=== PATIENT | female | born 1995 | race African-American/Black ===

== ENCOUNTER 2017-11-25 08:39 | Emergency (ER) | payer OTHER ==
[~2017-11-25] VITALS: Ht 157.5 cm; Wt 80.0 kg
[2017-11-25 08:42] VITALS: BP 126/60; PULSE 78; RESP 16; TEMP 97.9; O2SAT 98
[2017-11-25] MEDS ORDERED: ZIPR40 PO (08:52)
[2017-11-25] MEDS ORDERED: PROZ20CA11 PO (08:52)
[2017-11-25 08:53] VITALS: BP 119/61; PULSE 78; RESP 18; O2SAT 99
[2017-11-25] MEDS ORDERED: SODIUM CHLORIDE 0.9% FLUSH 10 ML FLUSH IV FLUSH PRN (09:15)
[2017-11-25 09:16] LABS: AUTOMATED NEUTROPHIL # 6.8 TH/MM3 (1.8-7.7); BASOPHIL # 0.1 TH/MM3 (0-0.2); BASOPHIL % 0.6 % (0.0-2.0); EOSINOPHIL # 0.2 TH/MM3 (0-0.4); EOSINOPHIL % 2.1 % (0.0-4.0); HEMATOCRIT 44.2 % (35.0-46.0); LYMPH % 19.6 % (9.0-44.0); LYMPHOCYTE # 1.9 TH/MM3 (1.0-4.8); MEAN CELL VOLUME 95.4 FL (80.0-100.0); MEAN CORPUSCULAR HEMOGLOBIN 32.3 PG (27.0-34.0); MEAN CORPUSCULAR HGB CONC 33.9 % (32.0-36.0); MEAN PLATELET VOLUME 9.5 FL (7.0-11.0); MONO % 6.3 % (0.0-8.0); MONOCYTE # 0.6 TH/MM3 (0-0.9); NEUT % 71.4 % (16.0-70.0); PLATELET COUNT 263 TH/MM3 (150-450); RED BLOOD COUNT 4.64 MIL/MM3 (4.00-5.30); RED CELL DISTRIBUTION WIDTH 13.5 % (11.6-17.2); WHITE BLOOD COUNT 9.5 TH/MM3 (4.0-11.0)
[2017-11-25 09:18] LABS: BILIRUBIN, URINE NEG (NEG); BLOOD, URINE NEG (NEG); GLUCOSE,URINE NEG (NEG); KETONE, URINE NEG (NEG); MUCUS URINE FEW /lpf (OCC); NITRITE,URINE NEG (NEG); SQUAMOUS EPITHELIAL CELL URINE 1 /hpf (0-5); URINE COLOR LIGHT-YELLOW (YELLW/STRAW); URINE LEUKOCYTE ESTERASE NEG (NEG)
--- NOTE | 2017-11-25 09:41 | PD ---
HPI Chief Complaint: GI Complaint Time Seen by Provider: 09:02 Travel History International Travel<30 days: No Contact w/Intl Traveler<30days: No Traveled to known affect area: No History of Present Illness HPI This is a 22-year-old female who presents today with complaints of epigastric pain with associated blood in her stool. Patient states that she has had this for several days. She states that normally she can control it with Tums however the Tums has stopped working. She reports that shortly after eating, the pain gets worse. Denies any hematemesis. She reports that she purchase some Zantac however the Zantac is not helping her discomfort. Patient also reports that she is noticed some blood in her stool. She denies any lower abdominal pain. She reports is worse in her epigastrium and left upper quadrant. There is no right upper quadrant pain. The patient has no history of GI abnormalities. There are no other complaints at the time of my examination. PFSH Past Medical History Bipolar Disorder: Yes Anxiety: Yes Depression: Yes Respiratory: Yes Tetanus Vaccination: Unknown Influenza Vaccination: No ?: Unknown LMP: 10/23/17 Past Surgical History Appendectomy: Yes Social History Alcohol Use: Yes Tobacco Use: Yes (1 pack a week) Substance Use: Yes (marijuana daily) Allergies-Medications (Allergen,Severity, Reaction): Coded Allergies: Penicillins (Verified Allergy, Intermediate, Hives, 11/25/17) Reported Meds & Prescriptions Reported Meds & Active Scripts Active Protonix (Pantoprazole Sodium) 40 Mg Tab 40 Mg PO DAILY Bentyl (Dicyclomine HCl) 10 Mg Cap 10 Mg PO TID PRN Reported Prozac (Fluoxetine HCl) 20 Mg Cap 20 Mg PO DAILY Geodon (Ziprasidone) 40 Mg Cap 40 Mg PO DAILY Review of Systems Except as stated in HPI: all other systems reviewed are Neg General / Constitutional: No: Fever, Chills HENT: No: Headaches, Lightheadedness Cardiovascular: No: Chest Pain or Discomfort, Palpitations, Tachycardia Respiratory: No: Cough, Shortness of Breath Gastrointestinal: Positive: Nausea, Abdominal Pain, Other (Blood in stool with mucus.), No: Vomiting, Diarrhea, Hematemesis (Epigastric and left upper quadrant ) Genitourinary: No: Frequency, Dysuria Musculoskeletal: No: Weakness, Pain Neurologic: No: Weakness, Dizziness, Headache Psychiatric: No: Substance Abuse Physical Exam Narrative GENERAL: Well-developed well-nourished female in no acute respiratory distress. SKIN: Focused skin assessment warm/dry. HEAD: Atraumatic. Normocephalic. EYES: Pupils equal and round. No scleral icterus. No injection or drainage. ENT: No nasal bleeding or discharge. Mucous membranes pink and moist. NECK: Trachea midline. Supple. CARDIOVASCULAR: Regular rate and rhythm. No murmur appreciated. RESPIRATORY: No accessory muscle use. Clear to auscultation. Breath sounds equal bilaterally. GASTROINTESTINAL: Abdomen soft, nondistended. She has subjective epigastric and left upper quadrant pain. There is no guarding or rebound. There is no lower abdominal pain on palpation. MUSCULOSKELETAL: No obvious deformities. No clubbing. No cyanosis. No edema. NEUROLOGICAL: Awake and alert. No obvious cranial nerve deficits. Motor grossly within normal limits. Normal speech. Data Data Last Documented VS Vital Signs Date Time Temp Pulse Resp B/P (MAP) Pulse Ox O2 Delivery O2 Flow Rate FiO2 11/25/17 14:18 18 11/25/17 10:08 99 Room Air 11/25/17 08:53 78 11/25/17 08:42 97.9 Orders Orders Complete Blood Count With Diff (11/25/17 09:02) Comprehensive Metabolic Panel (11/25/17 09:02) Lipase (11/25/17 09:02) Prothrombin Time / Inr (Pt) (11/25/17 09:02) Act Partial Throm Time (Ptt) (11/25/17 09:02) Urinalysis - C+S If Indicated (11/25/17 09:02) Iv Access Insert/Monitor (11/25/17 09:02) Ecg Monitoring (11/25/17 09:02) Oximetry (11/25/17 09:02) Sodium Chloride 0.9% Flush (Ns Flush) (11/25/17 09:15) Ed Urine Pregnancytest Poc (11/25/17 09:02) Al-Mag Hy-Si 40-40-4 Mg/Ml Liq (Mag-Al P (11/25/17 09:45) Lidocaine 2% Viscous (Xylocaine 2% Visco (11/25/17 09:45) Dicyclomine Inj (Bentyl Inj) (11/25/17 10:00) Ct Abd/Pel W Iv Contrast(Rout) (11/25/17 10:55) Prochlorperazine Inj (Compazine Inj) (11/25/17 11:00) Morphine Inj (Morphine Inj) (11/25/17 11:00) Oral Contrast - Adult (11/25/17 11:01) Diatrizoate Liq ( Gastrolance Liq) (11/25/17 11:15) Iohexol 350 Inj (Omnipaque 350 Inj) (11/25/17 13:04) Morphine Inj (Morphine Inj) (11/25/17 14:15) Labs Laboratory Tests Test 11/25/17 09:05 11/25/17 10:05 White Blood Count 9.5 TH/MM3 Red Blood Count 4.64 MIL/MM3 Hemoglobin 15.0 GM/DL Hematocrit 44.2 % Mean Corpuscular Volume 95.4 FL Mean Corpuscular Hemoglobin 32.3 PG Mean Corpuscular Hemoglobin Concent 33.9 % Red Cell Distribution Width 13.5 % Platelet Count 263 TH/MM3 Mean Platelet Volume 9.5 FL Neutrophils (%) (Auto) 71.4 % Lymphocytes (%) (Auto) 19.6 % Monocytes (%) (Auto) 6.3 % Eosinophils (%) (Auto) 2.1 % Basophils (%) (Auto) 0.6 % Neutrophils # (Auto) 6.8 TH/MM3 Lymphocytes # (Auto) 1.9 TH/MM3 Monocytes # (Auto) 0.6 TH/MM3 Eosinophils # (Auto) 0.2 TH/MM3 Basophils # (Auto) 0.1 TH/MM3 CBC Comment DIFF FINAL Differential Comment Urine Color LIGHT-YELLOW Urine Turbidity CLEAR Urine pH 8.0 Urine Specific [place] 1.015 Urine Protein NEG mg/dL Urine Glucose (UA) NEG mg/dL Urine Ketones NEG mg/dL Urine Occult Blood NEG Urine Nitrite NEG Urine Bilirubin NEG Urine Urobilinogen LESS THAN 2.0 MG/DL Urine Leukocyte Esterase NEG Urine RBC LESS THAN 1 /hpf Urine WBC 1 /hpf Urine Squamous Epithelial Cells 1 /hpf Urine Mucus FEW /lpf Microscopic Urinalysis Comment CULT NOT INDICATED Prothrombin Time 11.2 SEC Prothromb Time International Ratio 1.1 RATIO Activated Partial Thromboplast Time 23.9 SEC Blood Urea Nitrogen 14 MG/DL Creatinine 0.89 MG/DL Random Glucose 93 MG/DL Total Protein 6.8 GM/DL Albumin 3.6 GM/DL Calcium Level 10.0 MG/DL Alkaline Phosphatase 46 U/L Aspartate Amino Transf (AST/SGOT) 16 U/L Alanine Aminotransferase (ALT/SGPT) 17 U/L Total Bilirubin 0.2 MG/DL Sodium Level 141 MEQ/L Potassium Level 5.1 MEQ/L Chloride Level 106 MEQ/L Carbon Dioxide Level 28.5 MEQ/L Anion Gap 7 MEQ/L Estimat Glomerular Filtration Rate 97 ML/MIN Lipase 170 U/L MDM Medical Decision Making Medical Screen Exam Complete: Yes Emergency Medical Condition: Yes Differential Diagnosis Peptic ulcer disease versus cholecystitis versus inflammatory bowel disease Narrative Course 22-year-old female presents today with complete epigastric pain. Patient also reported mucousy stool with blood in it. Patient's labs are within normal limits. CT scan of the and pelvis was ordered because patient was still having discomfort in her left upper epigastric area. There is no evidence of acute findings. The patient will be told to start a bland diet. She will be started on Protonix 40 mg daily. She also be given Bentyl for spasms. She is instructed to return if she does any worsening symptoms. The patient does reside in [place] and her mother is a nurse there. She states that her mother will help her find a GI physician to follow-up as she will likely need a colonoscopy. Diagnosis Primary Impression: Abdominal pain Additional Impression: Reported mucousy bloody stool Additional Instructions: [place] diet. Follow-up with top polisher when you return to [place]. Med/Other Pt SpecificInfo: Prescription(s) given Scripts Pantoprazole (Protonix) 40 Mg Tab 40 MG PO DAILY for Reflux, #30 TAB 0 Refills Prov: Asa Bryan MD 11/25/17 Dicyclomine (Bentyl) 10 Mg Cap 10 MG PO TID Y for Bowel Management, #10 CAP 0 Refills Prov: Asa Bryan MD 11/25/17 Disposition: DISCHARGE HOME Condition: Stable Asa Bryan MD Nov 25, 2017 09:41
[2017-11-25] MEDS ORDERED: LIDOCAINE VISCOUS 2% SOLN 15 ML UDC PO ONE (09:45)
[2017-11-25] MEDS ORDERED: ALUMINUM/MAGNESIUM/SIMETH 30 ML CUP PO ONE (09:45)
[2017-11-25] MEDS ORDERED: DICYCLOMINE HCL 20 MG/2 ML VIAL IM ONE (10:00)
[2017-11-25 10:08] VITALS: O2SAT 99
[2017-11-25 10:30] LABS: PROTHROMBIN TIME - PATIENT 11.2 SEC (9.8-11.6)
[2017-11-25 10:32] LABS: INTERNATIONAL NORMALIZED RATIO 1.1 RATIO
[2017-11-25 10:35] LABS: ALT (GPT) 17 U/L (10-53)
[2017-11-25 10:37] LABS: ALKALINE PHOSPHATASE 46 U/L (45-117); TOTAL BILIRUBIN ADULT 0.2 MG/DL (0.2-1.0); TOTAL PROTEIN 6.8 GM/DL (6.4-8.2)
[2017-11-25 10:40] LABS: ALBUMIN 3.6 GM/DL (3.4-5.0); AST (GOT) 16 U/L (15-37); BICARBONATE 28.5 MEQ/L (21.0-32.0); BLOOD UREA NITROGEN 14 MG/DL (7-18); CHLORIDE 106 MEQ/L (98-107); CREATININE 0.89 MG/DL (0.50-1.00); GLOMERULAR FILTRATION RATE 97 ML/MIN (>89); GLUCOSE,RANDOM 93 MG/DL (74-106); SODIUM (NA) 141 MEQ/L (136-145)
[2017-11-25] MEDS ORDERED: PROCHLORPERAZINE INJ 10 MG/2 ML VIAL IV PUSH ONE (11:00)
[2017-11-25] MEDS ORDERED: MORPHINE SULFATE 4 MG/ML INJ IV PUSH ONE ×2 (11:00→14:15)
[2017-11-25] MEDS ORDERED: DIATRIZOATE MEGLUM/DIATRIZOATE SOD 9 ML CUP ONE (11:15)
[2017-11-25] MEDS ORDERED: IOHEXOL 350 MG/ML 10 ML VIAL (for RAD DIAG) IVCONTRAST ONE (13:04)
[2017-11-25] MEDS ORDERED: PROT40TA PO (13:34)
[2017-11-25] MEDS ORDERED: DICY10 PO (13:34)
[2017-11-25 14:18] VITALS: RESP 18
--- NOTE | 2017-11-25 14:39 | RADRPT ---
EXAM DATE: 11/25/2017 1:09 PM EDT AGE/SEX: 22 years / Female INDICATIONS: Nausea, vomiting, diarrhea, and abdominal pain. Blood in stool. CLINICAL DATA: This is the patient's initial encounter. Patient reports that signs and symptoms have been present for 3 days and indicates a pain score of 3/10. MEDICAL/SURGICAL HISTORY: None. Appendectomy. ORAL CONTRAST: Prescribed oral contrast ingested. RADIATION DOSE: 11.33 CTDI (mGy) COMPARISON: No prior exams available for comparison. TECHNIQUE: Multiple contiguous axial images were obtained through the abdomen and pelvis following b olus infusion of 92 ml Omnipaque 350 (iohexol) nonionic water-soluble contrast as a single exam dos e. Prescribed oral contrast ingested. Using automated exposure control and adjustment of the mA and/ or kV according to patient size, the radiation dose was kept as low as reasonably achievable to obtai n optimal diagnostic quality images. FINDINGS: Abdomen CT: The liver, spleen, pancreas, kidneys, adrenals are unremarkable. There is no evidence for any appreci able pathological adenopathy, free fluid, or bowel obstruction. There is mild atelectasis in right m iddle lobe. Pelvic CT: There is no evidence for mass, abscess formation, or any significant adenopathy within the pelvis. CONCLUSION: Essentially unremarkable study. Electronically signed by: Felix Giraldo MD 11/25/2017 1:19 PM EDT
== END 2017-11-25 15:21 | disposition home or self-care (01) ==
LOC: NEPC 08:39
DX: R10.13 Epigastric pain (principal); K92.1 Melena; F12.90 Cannabis use, unspecified, uncomplicated; F17.200 Nicotine dependence, unspecified, uncomplicated; F31.9 Bipolar disorder, unspecified
CPT/HCPCS: 74177; 80053; 81001; 83690; 84703; 85025; 85610; 85730; 96372; 96374; 96376; 99285; J0500; J2270; Q9963; Q9967